=== PATIENT | female | born 1970 | race Caucasian/White ===

== ENCOUNTER 2023-03-29 21:45 | Emergency (ER) | payer MEDICAID ==
[~2023-03-29] VITALS: Ht 157.5 cm; Wt 83.0 kg
[2023-03-29 21:55] VITALS: BP_SYST 131; PULSE 80; RESP 17; TEMP 97.5; O2SAT 98
== END 2023-03-29 22:32 | disposition left against medical advice (07) ==
LOC: SED 21:45
DX: R10.9 Unspecified abdominal pain (principal); Z88.0 Allergy status to penicillin; Z79.899 Other long term (current) drug therapy
CPT/HCPCS: 99281